=== PATIENT | male | born 1950 | race Caucasian/White ===

== ENCOUNTER 2019-10-22 11:05 | Inpatient (IN) | payer OTHER ==
[~2019-10-22] VITALS: Ht 180.3 cm; Wt 84.8 kg
[~2019-10-22 11:05] MED LIST: METFORMIN500 MG PO
[2019-10-22 11:15] VITALS: Ht 180.3 cm; Wt 84.8 kg
--- NOTE | 2019-10-22 12:01 | NUR ---
PATIENT AAOX4 PRESENTS TO THE ED WITH C/O ABD PAIN X 3 DAYS. PT STS HE HAS N/V/D AND FEELS WEAK. BREATHING E/U, SKIN WARM DRY AND INTACT. PT C/O POSSIBLE PIECE OF PLASTIC IN EAR WITH BILATERAL DRAINAGE. PT WAS PLACED ON ALL MONITORS FOR FURTHER OBSERVATION.
[2019-10-22 12:35] LABS: BASOPHIL % 0.6 % (0-2); PLATELET COUNT 222 x10^3mcL (130-400); RED CELL DISTRIBUTION WIDTH 13.9 % (11.5-14.5)
[2019-10-22 12:49] LABS: UA SPECIFIC GRAVITY 1.025 (1.005-1.035); microscopic required? YES; urine erythrocyte 1+ (NEGATIVE)
[2019-10-22 13:26] LABS: AMPHETAMINE QUAL UR NONE DETECTED (See below)
[2019-10-22 13:59] LABS: CALCIUM 9.3 mg/dL (8.5-10.1); CARBON DIOXIDE 22.7 mmol/L (21-32); CHLORIDE SERUM 97 mmol/L (98-107); GFR1 > 60 mL/min; GLUCOSE SERUM 189 mg/dL (74-106); POTASSIUM SERUM 4.5 mmol/L (3.5-5.1); SODIUM SERUM 131 mmol/L (136-145)
[2019-10-22 14:11] LABS: ALBUMIN 3.8 g/dL (3.4-5.0); ALKALINE PHOSPHATASE 85 U/L (46-116); ALT/SGPT 25 U/L (16-63); AST/SGOT 18 U/L (15-37); BILIRUBIN TOTAL 0.42 mg/dL (0.20-1.00); CHOLESTEROL 142 mg/dL (<200); HDL CHOLESTEROL 42 mg/dL (40-60); LIPASE 56 IU/L (73-393); MAGNESIUM 1.6 mg/dL (1.8-2.4); T4(THYROXINE) 9.1 ug/dL (4.7-13.3)
[2019-10-22] MEDS ORDERED: PEPCID AC20 M2 PO ×2 (14:38→14:41)
[2019-10-22] MEDS ORDERED: COZAAR50 M1 PO (14:38)
[2019-10-22] MEDS ORDERED: LASIX40 MG PO (14:38)
[2019-10-22] MEDS ORDERED: IRON90 MG PO (14:39)
[2019-10-22] MEDS ORDERED: METFORMIN500 M1 PO (14:40)
[2019-10-22] MEDS ORDERED: CARVEDILOL ER40 MG PO (14:40)
[2019-10-22] MEDS ORDERED: ZANAFLEX CAPSULE2 MG PO (14:41)
[2019-10-22] MEDS ORDERED: PERCOCET1 TAB PO (14:42)
[2019-10-22] MEDS ORDERED: AMARYL4 MG PO ×2 (14:43→14:44)
[2019-10-22] MEDS ORDERED: NASAL MIST126 ML (14:45)
[2019-10-22] MEDS ORDERED: ATORVASTATIN CA20 M1 PO (14:45)
[2019-10-22 15:11] LABS: CHOLESTEROL/HDL RATIO 3.4
[2019-10-22 15:21] LABS: FREE T4 1.2 ng/dL (0.76-1.46); FREE THYROXINE INDEX 2.9 ug/dL (1.4-4.5); T3 TOTAL 1.02 ng/mL; T4(THYROXINE) 7.8 ug/dL (4.7-13.3)
--- NOTE | 2019-10-22 16:31 | NUR ---
REPORT GIVEN TO COREY OLIVA TO ASSUME CARE.
--- NOTE | 2019-10-22 16:40 | NUR ---
PT RESP E/U WITH EYES CLOSED; AROUSES TO VERBAL STIMULI. NO DISTRESS. RESP E/U. AT BEDSIDE.
[2019-10-22 17:21] VITALS: BP 173/78
--- NOTE | 2019-10-22 17:35 | NUR ---
RECEIVED PT FROM ER, PT ADMIT FOR MASTOIDITIS, DM, PT IS A/O X4, VERBAL RESPONSIVE. C/O RIGHT EAR DRAINAGE SOMETIME, ASSESS THE RIGHT EAR. THERE IS NO DRAINAGE AT THIS MOMENT, PT DENY ANY PAIN AT RIGHT EAR AT THIS MOMENT, LUNG SOUND CLEAR BILATERAL, NO COUGH, NO SOB. PT DENY ANY CHEST PAIN OR DISCOMFORT, BOWEL SOUND PRESENT ALL 4 QUADRANTS, NO DISTENTION, NO TENDER. PEDAL PULSE PRESENT BOTH FEET, NO EDEMA, IV AT LEFT AC, NO LEAKING, NO INFILTRATION. PT'S B/P IS 174/78 AT THIS MOMENT, REPORT TO DR. WILLIAMSON. MAKE AWARE, ALL ADLS ASSIST, ALL NEED MET, CALL LIGHT IN REACH, WILL CONTINUE TO MONITOR.
--- NOTE | 2019-10-22 18:54 | NUR ---
PT RESTING IN BED WITH NO C/O PAIN OR DISTRESS. FAMILY AT BEDSIDE. A/OX4 WITH NO FELDMAN OR DIZZINESS. LUNGS CTAB. IV TO LAC RUNNING NS 100ML/HR, CDI AND PATENT. SAFETY PRECAUTIONS IN PLACE, CALL LIGHT WITHIN REACH, WILL ENDORSE CARE TO NIGHT NURSE.
[2019-10-22 19:04] VITALS: BP 148/76
--- NOTE | 2019-10-22 19:30 | NUR ---
PT RESTING IN BED AT THIS TIME, DENIES PAIN OR DISCOMFORT AT THIS TIME. PT A/O X4, CALM AND COPERATIVE AT THIS TIME. PT MS, DENIES CP, NV, DIZZINESS, OR PALPATATIONS. PALPABLE PULSES, NO EDEMA NOTED AT THIS TIME. BREATHING E/U ON RA, DENIES SOB. ABD SOFT AND ROUND, PT STATES DIARRHEA LIKE STOOLS. IV TO LAC, INTACT AND INFUSING. BED AT LOWEST POSITION. CALL LIGHT WITHIN REACH, WILL CONTINUE TO MONITOR.
[2019-10-22 20:55] VITALS: BP 149/73
--- NOTE | 2019-10-23 | NUR ---
PT RESTING IN BED AT THIS TIME. DENIES PAIN OR DISCOMFORT. BREATHING E/U ON RA. NO S/S OF PAIN OR DISCOMFORT NOTED. BED AT LOWEST POSITION. CALL LIGHT WITHIN REACH. WILL CONTINUE TO MONITOR.
[2019-10-23 05:18] VITALS: BP 133/63
--- NOTE | 2019-10-23 06:32 | NUR ---
PT RESTING IN BED AT THIS TIME. DENIES PAIN OR DISCOMFORT. BREATHING E/U ON RA. NO S/S OF PAIN OR DISCOMFORT NOTED. ALL NEEDS AND CONCERNS ADDRESSED THIS SHIFT. WILL ENDORSE TO DAY NURSE.
[2019-10-23 06:38] LABS: BASOPHIL % 0.7 % (0-2); PLATELET COUNT 193 x10^3mcL (130-400); RED CELL DISTRIBUTION WIDTH 14.1 % (11.5-14.5)
--- NOTE | 2019-10-23 07:02 | NUR ---
RECEIVED REPORT FROM NIGHT NURSE PATIENT LYING IN BED WITH EYES CLOSED. NO S/S OF ANY RESPIRATORY DISTRESS CHEST RISE EQUAL AND UNLABORED. A&O X4 , IV ON LAC PATENT AND INTACT NO REDNESS OR EDEMA. PATIENT DENIES ANY DIZZINESS AT THIS TIME. NO EAR DRAINAGE NOTED OR REPORTED BY PATIENT AT THIS TIME. PT DENIES ANY PAIN. CANE AT BEDSIDE FOR SAFETY PRECAUTIONS. ALL NEEDS ATTENDED TO AT TIS TIME. BED IN LOWEST POSITION CALL LIGHT WITHIN REACH. WILL CONTINUE TO MONITOR.
[2019-10-23 07:13] LABS: CALCIUM 8.5 mg/dL (8.5-10.1); CHLORIDE SERUM 103 mmol/L (98-107); GFR1 > 60 mL/min; GLUCOSE SERUM 86 mg/dL (74-106); MAGNESIUM 1.6 mg/dL (1.8-2.4); PHOSPHOROUS 4.1 mg/dL (2.5-4.9); POTASSIUM SERUM 3.8 mmol/L (3.5-5.1); SODIUM SERUM 136 mmol/L (136-145)
--- NOTE | 2019-10-23 08:15 | NUR ---
DR PAGAN AWARE OF LAB RESULT MAGNESIUM 1.6 NO NEW ORDERS AT THIS TIME.
--- NOTE | 2019-10-23 08:42 | NUR ---
PATIENT SITTING UP IN BED TOLERATED BREAKFAST WELL DENIES ANY N/V OR DIXZZINESS. ADMINISTERED SCHEDULED MED PER NOV PT TOLERATED WELL NO ADVERSE REACTIONS NOTED. ALL QUESTIONS AND CONCERNS ADDRESSED AT THIS TIME. BED IN LOWEST POSITION CALL LIGHT WITHIN REACH. WILL COTNINUE TO MONITOR.
[2019-10-23 08:43] VITALS: BP 152/79
--- NOTE | 2019-10-23 12:12 | NUR ---
Pt bedside gluco check 239 administered 6U reg insulin per sliding scale. patient tolerated well. No adverse reactions noted. All needs attended to. bed in lowest position call light within reach. Will continue to monitor.
[2019-10-23 12:28] VITALS: BP 138/84
--- NOTE | 2019-10-23 13:57 | NUR ---
DR PAGAN AT BEDSIDE UPDATING PT ON CARE STATUS. ALL QUESTIONS AND CONCERNS ADDRESSED AT THIS TIME. PATIENT DENIES ANY DIZZINES OR N/V. ALL NEEDS ATTENDED TO. BED IN LOWEST POSITION CALL LIGHT WITHIN REACH. WILL CONTINUE TO MONITOR.
[2019-10-23] MEDS ORDERED: BACTRIM1 TAB PO ×2 (15:00→15:52)
[2019-10-23] MEDS ORDERED: CIPRO500 MG/5 M PO (15:01)
[2019-10-23] MEDS ORDERED: GOOD NEIGHBOR M25 MG PO ×2 (15:15→15:52)
[2019-10-23 15:24] VITALS: BP 138/84
[2019-10-23] MEDS ORDERED: CIPRO500 MG PO (15:52)
--- NOTE | 2019-10-23 17:14 | NUR ---
DISCHARGE INSTRUCTIONS GIVEN TO PATIENT AND BOTH VERBALIZED UNDERSTANDING. PATIENT STABLE FOR DISCHARGE. IV D/C'D CATHETER INTACT DRESSING APPLIED PATIENT TOLERATED WELL. ALL QUESTIONS AND CONCERNS ADDRESSED AT THIS TIME. ALL PERSONAL BELONGINGS TAKEN WITH PATIENT. ESCORTED PATIENT TO LOBBY VIA WHEELCHAIR.
== END 2019-10-23 17:24 | disposition home or self-care (01) | DRG 153 ==
LOC: ED 11:05 → MU 15:19
PROVIDERS: Emergency Medicine; ADMIT Family Medicine
DX: H70.003 Acute mastoiditis without complications, bilateral (principal); E87.1 Hypo-osmolality and hyponatremia; E11.65 Type 2 diabetes mellitus with hyperglycemia; E83.42 Hypomagnesemia; E83.51 Hypocalcemia; F12.10 Cannabis abuse, uncomplicated; I11.9 Hypertensive heart disease without heart failure; I25.10 Atherosclerotic heart disease of native coronary artery without angina pectoris; E78.5 Hyperlipidemia, unspecified; M54.9 Dorsalgia, unspecified; G89.29 Other chronic pain; Z79.891 Long term (current) use of opiate analgesic; Z79.84 Long term (current) use of oral hypoglycemic drugs; Z95.5 Presence of coronary angioplasty implant and graft; Z87.891 Personal history of nicotine dependence; Z68.26 Body mass index [BMI] 26.0-26.9, adult
CPT/HCPCS: 82962; 83880; 84439; 97112-GP; G0378; J2543; J7030; Q0092

== ENCOUNTER 2019-11-10 14:50 | Emergency (ER) | payer OTHER ==
[~2019-11-10] VITALS: Ht 180.3 cm; Wt 88.9 kg
[~2019-11-10 14:50] MED LIST changes: +AMARYL4 MG PO; +ATORVASTATIN CA20 M1 PO; +BACTRIM1 TAB PO; +CARVEDILOL ER40 MG PO; +CIPRO500 MG PO; +CIPRO500 MG/5 M PO; +COZAAR50 M1 PO; +GOOD NEIGHBOR M25 MG PO; +IRON90 MG PO; +LASIX40 MG PO; +METFORMIN500 M1 PO; +NASAL MIST126 ML; +PEPCID AC20 M2 PO; +PERCOCET1 TAB PO; +ZANAFLEX CAPSULE2 MG PO
[2019-11-10 15:06] VITALS: Ht 180.3 cm; Wt 88.9 kg
[2019-11-10 16:20] VITALS: BP 138/71
== END 2019-11-10 16:22 | disposition home or self-care (01) ==
LOC: ED 14:50
DX: M79.672 Pain in left foot (principal); M79.671 Pain in right foot; I10 Essential (primary) hypertension; E11.9 Type 2 diabetes mellitus without complications; Q78.2 Osteopetrosis; Z95.1 Presence of aortocoronary bypass graft; Z90.89 Acquired absence of other organs
CPT/HCPCS: 82962